=== PATIENT | female | born 1990 | race Caucasian/White ===

== ENCOUNTER 2017-02-22 09:11 | Emergency (ER) | payer BC, OTHER ==
[2017-02-22] MEDS ORDERED: HYDROmorphONE/DILAUDID 1 MG/ML INJ IVP ONE (09:37)
[2017-02-22] MEDS ORDERED: ONDANSETRON 4 MG/2 ML VIAL IVP ONE (09:37)
[2017-02-22] MEDS ORDERED: NS 1,000 ML IV ONE (09:37)
--- NOTE | 2017-02-22 09:44 | EDPHY ---
H & P Stated Complaint: l shoulder/jaw pain/indigestion/sob last night/family cardiac issues Time Seen by Provider: 02/22/17 09:30 HPI/ROS: CHIEF COMPLAINT: Epigastric pain HISTORY OF PRESENT ILLNESS: The patient is a 26-year-old female comes to the emergency department complaining of epigastric pain that woke from sleep at 4: 00 a.m.. She went to bed feeling well. She is concerned because her mom needed a pacemaker in her mid 30s. She is also concerned about blood clot.. She denies shortness of breath but does have some pain that is radiating to her left neck and jaw. She is on control pills in no recent travel. No leg swelling or pain. She has not vomited. REVIEW OF SYSTEMS: Constitutional: denies: chills, fever, recent illness, recent injury EENTM: denies: blurred vision, double vision, nose congestion Respiratory: denies: cough, shortness of breath Cardiac: denies: chest pain, irregular heart rate, lightheadedness, palpitations Gastrointestinal/Abdominal: See HPI denies: diarrhea, nausea, blood streaked stools Genitourinary: denies: dysuria, frequency, hematuria, pain Musculoskeletal: denies: joint pain, muscle pain Skin: denies: lesions, rash, jaundice, bruising Neurological: denies: headache, numbness, paresthesia, tingling, dizziness, weakness Hematologic/Lymphatic: denies: blood clots, easy bleeding, easy bruising Immunologic/allergic: denies: HIV/AIDS, transplant EXAM: GENERAL: Well-appearing, well-nourished and in no acute distress. HEAD: Atraumatic, normocephalic. EYES: Pupils equal round and reactive to light, extraocular movements intact, sclera anicteric, conjunctiva are normal. ENT: TMs normal, nares patent, oropharynx clear without exudates. Moist mucous membranes. NECK: Normal range of motion, supple without lymphadenopathy or JVD. LUNGS: Breath sounds clear to auscultation bilaterally and equal. No wheezes rales or rhonchi. HEART: Regular rate and rhythm without murmurs, rubs or gallops. ABDOMEN: Epigastric tenderness, Soft, bowel sounds. No guarding, no rebound. No masses appreciated. BACK: No CVA tenderness, no spinal tenderness, step-offs or deformities EXTREMITIES: Normal range of motion, no pitting or edema. No clubbing or cyanosis. NEUROLOGICAL: Cranial nerves II through XII grossly intact. Normal speech, normal gait. 5/5 strength, normal movement in all extremities, normal sensation PSYCH: Normal mood, normal affect. SKIN: Warm, dry, normal turgor, no visible rashes or lesions. Source: Patient Exam Limitations: No limitations - Personal History LMP (Females 10-55): IUD In Place Current Tetanus/Diphtheria Vaccine: Yes - Medical/Surgical History Hx Asthma: No Hx Chronic Respiratory Disease: No Hx Diabetes: No Hx Cardiac Disease: No Hx Renal Disease: No Hx Cirrhosis: No Hx Alcoholism: No Hx HIV/AIDS: No Hx Splenectomy or Spleen Trauma: No Other PMH: denies - Family History Significant Family History: No pertinent family hx - Social History Smoking Status: Never smoked Alcohol Use: Sober Drug Use: None Constitutional: Initial Vital Signs Temperature (C) 37.2 C 02/22/17 09:15 Heart Rate 66 02/22/17 09:15 Respiratory Rate 20 02/22/17 09:15 Blood Pressure 137/93 H 02/22/17 09:15 O2 Sat (%) 97 02/22/17 09:15 O2 Delivery Mode Room Air Allergies/Adverse Reactions: No Known Allergies Allergy (Unverified 02/22/17 09:14) Home Medications: Medication Instructions Recorded MIRENA 02/22/17 NK [No Known Home Meds] 02/22/17 Medical Decision Making - Diagnostics EKG Interpretation: An EKG obtained and was read and documented in trace view. Please see trace view for full reading and report. Sinus rhythm, S1 s3 T3. Imaging: Discussed imaging studies w/ transcribing operator head Radiologist ED Course/Re-evaluation: 11:15 a.m. the patient is still having some pain. Her lab work and ultrasound are reassuring. I will obtain a chest x-ray. We will give her Toradol. 12:10 a.m. the patient's x-ray is reassuring. Her symptoms have improved after Toradol. She is still having occasional pain. I offered further observation and treatment but she would prefer to go home and wrist. We discussed indications for returning. Differential Diagnosis: Partial list of the Differential diagnosis considered include but were not limited to; peptic ulcer disease, biliary disease muscle spasm, contusion, P and although unlikely based on the history and physical exam, I also considered acute coronary disease, arrhythmia, kidney stone, obstruction. I discussed these differential diagnoses and the plan with the patient as well as the usual and expected course. The patient understands that the diagnosis is provisional and that in medicine we are not always correct and that further workup is often warranted. Usual and customary warnings were given. All of the patient's questions were answered. The patient was instructed to return to the emergency department should the symptoms at all worsen or return, otherwise to followup with the physician as we discussed. - Data Points Laboratory Results: Laboratory Results 02/22/17 09:51 02/22/17 09:51 Medications Given: Discontinued Medications Hydromorphone HCl (Dilaudid) 0.5 mg IVP EDNOW ONE Stop: 02/22/17 09:38 Last Admin: 02/22/17 10:27 Dose: 0.5 mg Sodium Chloride (Ns) 1,000 mls @ 0 mls/hr IV EDNOW ONE; Wide Open PRN Reason: Protocol Stop: 02/22/17 09:38 Last Admin: 02/22/17 10:37 Dose: 1,000 mls Ketorolac Tromethamine (Toradol) 15 mg IVP EDNOW ONE Stop: 02/22/17 11:15 Last Admin: 02/22/17 11:15 Dose: 15 mg Ondansetron HCl (Zofran) 4 mg IVP EDNOW ONE Stop: 02/22/17 09:38 Last Admin: 02/22/17 10:27 Dose: 4 mg Departure - Departure Disposition: Home, Routine, Self-Care Clinical Impression: Epigastric abdominal pain Shoulder pain Qualifiers: Chronicity: acute Laterality: left Qualified Code(s): M25.512 - Pain in left shoulder Condition: Fair Instructions: Chest Pain (ED), Epigastric Pain (ED) Referrals: NONE *PRIMARY CARE P,. [Primary Care Provider] - As per Instructions Esther Joshua MD [[facility] Primary Care Provider] - As per Instructions
--- NOTE | 2017-02-22 09:46 | CPEKG ---
Heart Rate: 50 RR Interval: 1200 P-R Interval: 160 QRSD Interval: 88 QT Interval: 428 QTC Interval: 391 P [place]: 18 QRS [place]: 110 T Wave [place]: 5 EKG Severity - OTHERWISE NORMAL ECG - EKG Impression: SINUS RHYTHM EKG Impression: S1,S2,S3 PATTERN Electronically Signed By: Wilfrid Ellis 22-Feb-2017 09:49:18
[2017-02-22 10:02] LABS: % IMMATURE GRANULYOCYTES 0.2 % (0.0-1.1); ABSOLUTE IMMATURE GRANULOCYTES 0.01 10^3/uL (0.00-0.10); ADD DIFF? NO; ADD MORPH? NO; ADD SCAN? NO; ATYPICAL LYMPHOCYTE FLAG 10 (0-99); FRAGMENT RBC FLAG 20 (0-99); HEMATOCRIT 45.9 % (38.0-47.0); HEMOGLOBIN 15.4 g/dL (12.6-16.3); LEFT SHIFT FLG 0 (0-99); LIPEMIA HEMOLYSIS FLAG 80 (0-99); MEAN CELL HEMOGLOBIN 31.2 pg (27.9-34.1); MEAN CELL HEMOGLOBIN CONCENTR. 33.6 g/dL (32.4-36.7); MEAN CELL VOLUME 93.1 fL (81.5-99.8); MEAN PLATELET VOLUME 9.3 fL (8.7-11.7); PLATELET CLUMPS FLAG 0 (0-99); PLATELET COUNT 282 10^3/uL (150-400); RED BLOOD CELL COUNT 4.93 10^6/uL (4.18-5.33); RED CELL DISTRIBUTION WIDTH 12.7 % (11.5-15.2)
[2017-02-22 10:12] LABS: ALANINE AMINOTRANSFERASE 27 IU/L (9-52); ALBUMIN 4.4 g/dL (3.5-5.0); ALKALINE PHOSPHATASE 50 IU/L (38-126); ANION GAP 12 mEq/L (8-16); ASPARTATE AMINOTRANSFERASE 22 IU/L (14-46); BILIRUBIN,TOTAL 1.2 mg/dL (0.1-1.4); BILIRUBIN-CONJUGATED 0.2 mg/dL (0.0-0.5); CALCIUM 9.4 mg/dL (8.5-10.4); CARBON DIOXIDE 24 mEq/l (22-31); CHLORIDE 107 mEq/L (97-110); CREATININE 0.7 mg/dL (0.6-1.0); GLOMERULAR FILTRATION RATE > 60; GLUCOSE 90 mg/dL (70-100); POTASSIUM 4.3 mEq/L (3.5-5.2); SODIUM 143 mEq/L (134-144); TOTAL PROTEIN 7.3 g/dL (6.3-8.2)
[2017-02-22 10:23] LABS: TROPONIN I 0.031 ng/mL (0.000-0.034)
[2017-02-22 10:47] LABS: COLOR PALE YELLOW; LEUKOCYTE ESTERASE,URINE NEGATIVE (NEGATIVE); NITRITE,URINE NEGATIVE (NEGATIVE)
[2017-02-22 10:50] LABS: MUCUS TRACE /lpf (NONE-1+)
[2017-02-22 10:56] LABS: RBC,URINE NONE SEEN /hpf (0-3); WBC,URINE NONE SEEN /hpf (0-3)
[2017-02-22] MEDS ORDERED: KETOROLAC 15 MG/1 ML SDV ONE (11:13)
[2017-02-22] MEDS ORDERED: KETOROLAC 15 MG/1 ML SDV IVP ONE (11:14)
[2017-02-22 11:48] VITALS: RESP 14
[2017-02-22 12:25] VITALS: BP 121/70; PULSE 56; TEMP 98.1; O2SAT 97
== END 2017-02-22 12:32 | disposition home or self-care (01) ==
DX: R10.13 Epigastric pain (principal); M25.512 Pain in left shoulder; E86.9 Volume depletion, unspecified
CPT/HCPCS: 96374; J1170; J1885; J2405